=== PATIENT | male | born 1995 ===

== ENCOUNTER 2017-08-25 00:38 | Emergency (ER) | payer SELFPAY ==
[2017-08-25 00:38] VITALS: BMI 26.9
[2017-08-25 00:44] VITALS: BP 128/68; PULSE 80; RESP 18; TEMP 97.6; O2SAT 97
--- NOTE | 2017-08-25 01:00 | ED PDOC ---
HPI: CCC, URI, Sore Throat <Andreina Foy - Last Filed: 08/25/17 01:55> <Yariel Maldonado - Last Filed: 08/25/17 05:33> Time Seen by Provider: 08/25/17 00:47 Chief Complaint (Nursing): ENT Problem Additional Complaint(s): 22yo M with no PMHx c/o sore throat. sore throat x5 days, a/w torso myalgias, cough x1 day, denies cervical LAD, n/v. Tolerating PO. Denies sick contacts. Took advil today. (Andreina Foy) Supervising Attending Note - Attestation: I have personally seen and examined this patient.: Yes I have fully participated in the care of the patient.: Yes I have reviewed all pertinent clinical information, including history, physical exam and plan: Yes <Yariel Maldonado - Last Filed: 08/25/17 05:33> Past Medical History Reviewed: Historical Data, Nursing Documentation, Vital Signs - Medical History PMH: No Chronic Diseases - Surgical History Surgical History: Appendectomy - Family History Family History: States: Unknown Family Hx - Social History Current smoker - smoking cessation education provided: No Alcohol: None Drugs: Denies <Andreina Foy - Last Filed: 08/25/17 01:55> <Yariel Maldonado - Last Filed: 08/25/17 05:33> Vital Signs: Last Vital Signs Temp 97.6 F 08/25/17 00:39 Pulse 80 08/25/17 00:39 Resp 18 08/25/17 00:39 BP 128/68 08/25/17 00:39 Pulse Ox 97 08/25/17 01:55 - Home Medications Home Medications: Ambulatory Orders Medication Instructions Recorded Cyclobenzaprine [Flexeril] 10 mg PO Q8 PRN #15 tab 11/14/15 Naproxen [Naprosyn] 500 mg PO BID #20 tab 11/14/15 Famotidine [Pepcid] 20 mg PO Q12 #20 tab 07/28/16 Ondansetron [Zofran] 4 mg PO Q8H #10 tab 07/28/16 Ibuprofen [Motrin Tab] 600 mg PO Q6 #30 tab 08/25/17 Prednisone [Deltasone] 20 mg PO DAILY #3 tablet 08/25/17 - Allergies Allergies/Adverse Reactions: Allergies Allergy/AdvReac Type Severity Reaction Status Date / Time No Known Allergies Allergy Verified 07/28/16 07:58 Review of Systems ROS Statement: Except As Marked, All Systems Reviewed And Found Negative ENT: Positive for: Other (sore throat) <Andreina Foy - Last Filed: 08/25/17 01:55> Physical Exam - Reviewed Nursing Documentation Reviewed: Yes Vital Signs Reviewed: Yes - Physical Exam Appears: Positive for: Well, Non-toxic Head Exam: Positive for: ATRAUMATIC, NORMAL INSPECTION Skin: Positive for: Warm, Dry Eye Exam: Positive for: Normal appearance ENT: Positive for: Pharyngeal Erythema. Negative for: Tonsillar Exudate Neck: Positive for: Normal, Supple Cardiovascular/Chest: Positive for: Regular Rate, Rhythm. Negative for: Chest Non Tender Respiratory: Positive for: Normal Breath Sounds. Negative for: Decreased Breath Sounds Gastrointestinal/Abdominal: Positive for: Soft. Negative for: Tenderness Back: Positive for: Normal Inspection Extremity: Positive for: Normal ROM Lymphatic: Negative for: Adenopathy Neurologic/Psych: Positive for: Alert, Oriented <Andreina Foy - Last Filed: 08/25/17 01:55> - ECG O2 Sat by Pulse Oximetry: 97 <Andreina Foy - Last Filed: 08/25/17 01:55> Medical Decision Making <Andreina Foy - Last Filed: 08/25/17 01:55> <Yariel Maldonado - Last Filed: 08/25/17 05:33> Medical Decision Makin DDx influenza, strep, viral URI, pharyngitis duration of symptoms 5 days, tamiflu would not be indicate centor score 1, rapid strep not indicated VSS prednisone 20mg PO ibuprofen 600mg PO reassessment 0154 pharyngitis improved d/c with prednisone and ibuprofen FU PCP (Andreina Foy) Disposition - Disposition Disposition Time: 01:54 <Andreina Foy - Last Filed: 08/25/17 01:55> <Yariel Maldonado - Last Filed: 08/25/17 05:33> - Clinical Impression Clinical Impression: Pharyngitis - Disposition Referrals: [facility] [Outside] Condition: IMPROVED Prescriptions: Ibuprofen [Motrin Tab] 600 mg PO Q6 #30 tab Prednisone [Deltasone] 20 mg PO DAILY #3 tablet Instructions: Viral Pharyngitis (DC) Forms: [employer] (Emirati)
== END 2017-08-25 02:30 | disposition home or self-care (01) ==
LOC: H.ER 00:38
DX: J02.9 Acute pharyngitis, unspecified (principal)